=== PATIENT | female | born 1935 ===

== ENCOUNTER 2019-09-19 09:12 | Emergency (ER) | payer OTHER ==
[~2019-09-19] VITALS: Ht 147.3 cm; Wt 40.8 kg
[~2019-09-19 09:12] MED LIST: AMIODARONE HCL200 MG NGT; ANTIVERT12.5 MG; APETIGEN PLUS120 ML; ATACAND HCT 11 UDTA1; CELEBREX100 MG; DIGOXIN125 MCG PO; GLUCOPHAGE XR500 MG; LEXAPRO5 MG; MARINOL2.5 MG; METOPROLOL TAR100 MG PO; SEPTRA DS TABLE1 TAB PO; VALTREX1000 MG PO; VYTORIN 10-20 M1 TAB; ZOSTRIX CREAM56.6 GM TP; [UNRECOGNIZED DRUG - OTHER] TP
[2019-09-19] MEDS ORDERED: NAMENDA10 MG (09:44)
== END 2019-09-19 10:18 | disposition home or self-care (01) ==
LOC: ER 09:12
DX: K94.29 Other complications of gastrostomy (principal); G30.8 Other Alzheimer's disease; F02.80 Dementia in other diseases classified elsewhere, unspecified severity, without behavioral disturbance, psychotic disturbance, mood disturbance, and anxiety

== ENCOUNTER 2019-10-08 12:05 | Inpatient (IN) | payer OTHER ==
[~2019-10-08] VITALS: Ht 152.4 cm; Wt 45.4 kg
[~2019-10-08 12:05] MED LIST changes: +NAMENDA10 MG
[2019-10-10] MEDS ORDERED: MEMANTINE HCL10 MG PO (11:33)
[2019-10-10] MEDS ORDERED: LOPRESSOR25 MG PO (11:33)
[2019-10-10] MEDS ORDERED: METOPROLOL TART50 MG PO (11:34)
[2019-10-10] MEDS ORDERED: METFORMIN HCL500 M4 PO (11:34)
[2019-10-11] MEDS ORDERED: TOPROL XL50 M1 PO (09:41)
[2019-10-11] MEDS ORDERED: NAMENDA10 MG PO (09:41)
== END 2019-10-11 12:33 | disposition home or self-care (01) | DRG 328 ==
LOC: ER 12:05 → SURH 14:46
PROVIDERS: ADMIT Internal Medicine
PROC: 0DP63UZ Removal of Feeding Device from Stomach, Percutaneous Approach (ICD-10-PCS; principal; 2019-10-09)
PROC: 0DH63UZ Insertion of Feeding Device into Stomach, Percutaneous Approach (ICD-10-PCS; 2019-10-09)
PROC: 3E0G76Z Introduction of Nutritional Substance into Upper GI, Via Natural or Artificial Opening (ICD-10-PCS; 2019-10-09)
DX: K94.23 Gastrostomy malfunction (principal); Z74.01 Bed confinement status; R13.19 Other dysphagia; E86.0 Dehydration; G30.8 Other Alzheimer's disease

== ENCOUNTER 2020-10-15 08:23 | Inpatient (IN) | payer OTHER ==
[~2020-10-15] VITALS: Ht 152.4 cm; Wt 40.8 kg
[~2020-10-15 08:23] MED LIST changes: +LOPRESSOR25 MG PO; +MEMANTINE HCL10 MG PO; +METFORMIN HCL500 M4 PO; +METOPROLOL TART50 MG PO; +NAMENDA10 MG PO; +TOPROL XL50 M1 PO
--- NOTE | 2020-10-15 08:53 | NUR ---
PTE LETRAGICA CON BUEN PATRON RESPIRATORIO. FAMILIAR REFIERE QUE TIENE MALHOTRA CON ORINA COLOR GRIFFIN OSCURO. SE OBSERVA CON LACERACIONES EN AMBOS BRAZOS. SE UBICA EN RENA #11.
--- NOTE | 2020-10-15 09:04 | NUR ---
PACIENTE LLEGO CON SONDA URINARIA QUE PRESENTA YOLANDA COLOR GRIFFIN Y CON TUBO DE GASTROSTOMIA.
--- NOTE | 2020-10-15 09:48 | NUR ---
SE ORIENTA A FAMILIAR SOBRE PROCEDIMIENTOS, EL REFIERE ENTENDER. SE COLECTA MUESTRAS, SE CANALIZA Y SE COLOCA IV FLUID SHANIQUA ORDEN MEDICA UTILIZANOD MEDIDAS ASEPTICAS. FAMILIAR DE PTE REHUSA QUE LE REALIZEN PRUEBA DEL COVID-19 SWAB. SE MANTIENE BAJO OBSERVACION POR CAMBIOS.
--- NOTE | 2020-10-15 15:36 | NUR ---
PTE ALERTA,EN COMPANIA DE FAMILIAR,EN RENA CON BARANDAS ELEVADAS,EN COMPANIA DE FAMILIAR.PTE CON AREA DE VENOPUNCION PATENTE Y TETE DE EDEMA CON FLUIDOS DE MANTENIMIENTO,PEG Y MALHOTRA QUE PRESENTA HEMATURIA.PENDIENTE A EVALUACION DE DR Lana TALBERT.
[2020-10-16] MEDS ORDERED: SSD25 GM (11:39)
== END 2020-10-19 18:49 | disposition home or self-care (01) | DRG 700 ==
LOC: ER 08:23 → MEDI 19:58
PROVIDERS: ADMIT Internal Medicine; ATTEND Internal Medicine
PROC: BW21ZZZ Computerized Tomography (CT Scan) of Abdomen and Pelvis (ICD-10-PCS; principal; 2020-10-17)
DX: T83.511A Infection and inflammatory reaction due to indwelling urethral catheter, initial encounter (principal); N39.0 Urinary tract infection, site not specified; G30.9 Alzheimer's disease, unspecified; F02.80 Dementia in other diseases classified elsewhere, unspecified severity, without behavioral disturbance, psychotic disturbance, mood disturbance, and anxiety; Z20.822 Contact with and (suspected) exposure to COVID-19; Z74.01 Bed confinement status